=== PATIENT | female | born 1930 | race Caucasian/White ===

== ENCOUNTER → 2016-12-17 | Outpatient (CLI) | payer MEDICARE, BC ==
--- NOTE | 2016-12-17 17:52 | PCVCIMAG ---
APPROVED REPORT Study performed: 12/17/2016 14:18:29 EXAM: Comprehensive 2D, Doppler, and color-flow Echocardiogram Patient Location: Echo lab Status: routine Other Information Study Quality: Good Risk Factors: Cardiac Risk Factors: HTN Indications Pre-Op Murmur Atrial Fibrillation Bradycardia 2D Dimensions LVEF(%): 66.21 (>50%) IVSd: 12.31 (7-11mm) LVDd: 36.42 mm PWd: 11.71 (7-11mm) LVDs: 23.39 (25-40mm) Left Atrium: 43.11 (27-40mm) Aortic Root: 30.76 mm LV Single Plane 4CH: 64.88 % LV Single Plane 2CH: 64.68 %Cook's LVEF: 64.78 % Biplane EF: 65.6 % Volumes Left Atrial Volume (Systole) Single Plane 4CH: 77.67 mLSingle Plane 2CH: 89.40 mL LA ESV Index: 51.00 mL/m2 Aortic Valve AoV Peak Neal.: 1.42 m/s AO Peak Gr.: 8.08 mmHgLVOT Max P.05 mmHg LVOT Max V: 0.72 m/s Mitral Valve IVRT: 87.66 ms Pulmonary Valve PV Peak Neal.: 0.61 m/sPV Peak Gr.: 1.48 mmHg Pulmonary Vein P Vein S: 0.39 m/s P Vein D: 0.88 m/s P Vein S/D Ratio: 0.44 Tricuspid Valve TR Peak Neal.: 3.62 m/s TR Peak Gr.: 52.49 mmHg Left Ventricle The left ventricle is normal size. There is normal LV segmental wall motion. Mild concentric left ventricular hypertrophy. Left ventricular systolic function is normal. The left ventricular ejection fraction is within the normal range. LVEF is 65%. Grade II - pseudonormal filling dynamics. Right Ventricle Right ventricle is mildly dilated. The right ventricular systolic function is normal. Atria Left atrium is severely dilated. Right atrium is severely dilated. Aortic Valve The aortic valve is normal in structure. Mild aortic regurgitation. There is no aortic valvular stenosis. Mitral Valve The mitral valve is normal in structure. Moderate mitral regurgitation. No evidence of mitral valve stenosis. Mild bi-leaflet mitral valve prolapse. Tricuspid Valve The tricuspid valve is normal in structure. Moderate to severe tricuspid regurgitation with PAP of 60 mmHg. Pulmonic Valve The pulmonary valve is normal in structure. Mild pulmonic regurgitation. Great Vessels The aortic root is normal in size. IVC is normal in size and collapses with >50% inspiration Pericardium There is no pericardial effusion. <Conclusion> The left ventricle is normal size. Mild concentric left ventricular hypertrophy. LVEF is 65%. Grade II - pseudonormal filling dynamics. Right ventricle is mildly dilated. Left atrium is severely dilated. Right atrium is severely dilated. Mild aortic regurgitation. There is no aortic valvular stenosis. Moderate mitral regurgitation. Moderate to severe tricuspid regurgitation with PAP of 60 mmHg. There is no pericardial effusion.
== END | disposition home or self-care (01) ==
LOC: PCVCCLINIC 13:19
PROVIDERS: ATTEND Internal Medicine Cardiovascular Disease
DX: Z01.810 Encounter for preprocedural cardiovascular examination (principal); I44.0 Atrioventricular block, first degree; I35.1 Nonrheumatic aortic (valve) insufficiency; I34.0 Nonrheumatic mitral (valve) insufficiency; I07.1 Rheumatic tricuspid insufficiency; I37.1 Nonrheumatic pulmonary valve insufficiency; R01.1 Cardiac murmur, unspecified; R00.1 Bradycardia, unspecified; I48.2 Chronic atrial fibrillation; I10 Essential (primary) hypertension; M15.9 Polyosteoarthritis, unspecified
CPT/HCPCS: 80061; 93005; 93306; G0463

== ENCOUNTER → 2017-07-21 | Outpatient (CLI) | payer MEDICARE, BC | END | disposition home or self-care (01) | LOC: PCVCCLINIC 13:34 | DX: I10 Essential (primary) hypertension (principal); I48.3 Typical atrial flutter; R01.1 Cardiac murmur, unspecified; I34.0 Nonrheumatic mitral (valve) insufficiency; I36.1 Nonrheumatic tricuspid (valve) insufficiency; R94.31 Abnormal electrocardiogram [ECG] [EKG]; Z79.899 Other long term (current) drug therapy | CPT/HCPCS: 36415; 80061; 93005; G0463 ==

== ENCOUNTER → 2018-02-02 | Outpatient (CLI) | payer MEDICARE, BC ==
--- NOTE | 2018-02-02 15:41 | PCVCIMAG ---
APPROVED REPORT Study performed: 02/02/2018 13:42:11 EXAM: Comprehensive 2D, Doppler, and color-flow Echocardiogram Patient Location: Echo lab Status: routine BSA: 1.52 HR: 50 bpmBP: 200/90 mmHg Rhythm: NSR Other Information Study Quality: Good Risk Factors: Cardiac Risk Factors: HTN Indications Murmur Mitral regurgitation, Tricuspid regurgitation 2D Dimensions LVEF(%): 59.90 (>50%) IVSd: 12.39 (7-11mm)LVOT Diam: 21.31 (18-24mm) LVDd: 42.33 mm PWd: 10.52 (7-11mm)Ascending Ao: 31.66 (22-36mm) LVDs: 28.96 (25-40mm) Left Atrium: 46.80 (27-40mm) Aortic Root: 28.59 mm LV Single Plane 4CH: 61.99 % LV Single Plane 2CH: 54.34 %Cook's LVEF: 58.17 % Biplane EF: 58.3 % Volumes Left Atrial Volume (Systole) Single Plane 4CH: 76.64 mLSingle Plane 2CH: 59.25 mL LA ESV Index: 46.00 mL/m2 Aortic Valve AoV Peak Neal.: 1.32 m/s AO Peak Gr.: 7.02 mmHgLVOT Max P.07 mmHg LVOT Max V: 0.72 m/s [place] Vmax: 1.94 cm2 AI Vmax: 4.73 m/s AI [place]: 1.42 m/s2 AI PHT: 966.85 ms Mitral Valve E/A Ratio: 0.0 MV E Max Neal.: 0.87 m/s MV A Neal.: 0.00 m/s Tricuspid Valve TR Peak Neal.: 3.23 m/s TR Peak Gr.: 41.67 mmHg Left Ventricle The left ventricle is normal size. There is normal LV segmental wall motion. There is normal left ventricular wall thickness. Left ventricular systolic function is normal. The left ventricular ejection fraction is within the normal range. LVEF is 55-60%. The left ventricular diastolic function is normal. Right Ventricle The right ventricle is normal size. The right ventricular systolic function is normal. Atria The left atrium size is normal. The right atrium size is normal. Aortic Valve The aortic valve is normal in structure. Trace to mild aortic regurgitation. There is no aortic valvular stenosis. Mitral Valve The mitral valve is normal in structure. Mild mitral regurgitation. No evidence of mitral valve stenosis. Tricuspid Valve The tricuspid valve is normal in structure. Mild tricuspid regurgitation. Pulmonary artery pressure 49mmhg. Pulmonic Valve The pulmonary valve is normal in structure. Trace pulmonic regurgitation. Great Vessels The aortic root is normal in size. IVC is normal in size and collapses with >50% inspiration Pericardium There is no pericardial effusion. <Conclusion> The left ventricle is normal size. LVEF is 55-60%. The left ventricular diastolic function is normal. The right ventricle is normal size. The left atrium size is normal. The aortic valve is normal in structure. There is no aortic valvular stenosis. Mild mitral regurgitation. Mild tricuspid regurgitation. Pulmonary artery pressure 49mmhg. The aortic root is normal in size. There is no pericardial effusion.
== END | disposition home or self-care (01) ==
LOC: PCVCIMAG 13:18
PROVIDERS: ATTEND Internal Medicine Cardiovascular Disease
DX: I08.1 Rheumatic disorders of both mitral and tricuspid valves (principal); I48.92 Unspecified atrial flutter; I10 Essential (primary) hypertension; I48.0 Paroxysmal atrial fibrillation; R01.1 Cardiac murmur, unspecified
CPT/HCPCS: 80061; 93005; 93306; G0463

== ENCOUNTER → 2018-11-04 | Outpatient (CLI) | payer MEDICARE, BC | END | disposition home or self-care (01) | LOC: PCVCCLINIC 11:30 | PROVIDERS: ATTEND Internal Medicine Cardiovascular Disease | DX: I48.3 Typical atrial flutter (principal); E78.5 Hyperlipidemia, unspecified; I10 Essential (primary) hypertension; R01.1 Cardiac murmur, unspecified; I08.1 Rheumatic disorders of both mitral and tricuspid valves; Z88.8 Allergy status to other drugs, medicaments and biological substances; M85.80 Other specified disorders of bone density and structure, unspecified site; Z79.899 Other long term (current) drug therapy | CPT/HCPCS: 36415; 80061; 93005; G0463 ==